=== PATIENT | male | born 1990 | race Caucasian/White ===

== ENCOUNTER 2025-03-12 08:46 | Emergency (ER) | payer MEDICAID, SELFPAY ==
--- NOTE | 2025-03-12 08:58 | XR_ITS ---
Examination: AP chest single view Technique one AP portable upright chest single view Date and time: March 12, 2025, 0903 hours Comparison October 25, 2023 INDICATIONS: Chest pain today FINDINGS: Normal heart size The lungs are clear. The osseous structures are intact IMPRESSION: No active disease
--- NOTE | 2025-03-12 09:00 | XR_ITS ---
Examination: CT abdomen with intravenous contrast CT pelvis with intravenous contrast 2-D coronal reconstructions 2-D sagittal reconstructions Date and time of exam:March 12, 2025 0909 hours INDICATIONS: Laceration to the anterior abdomen this morning. CTDI: vol (mGy) 5.02 DLP: (mGycm) 302 Technique: Multiple axial sections of the abdomen and pelvis have been obtained. 64 slice high-resolution scanner used. 3 mm axial sections have been obtained, post intravenous injection 60 cc [id number] 2-D sagittal, coronal reconstructions obtained. Low dose protocols were performed. One or more of the following dose reduction techniques were used; automated exposure control, adjustment of the mA and/or KV according to patient size, use of iterative reconstruction technique. Findings: Small soft tissue defect left anterior abdomen axial image 122, below the umbilicus with soft tissue contusion and 14 x 6 mm hematoma Minimal irregularity the anterior rectus muscle on the left. No free air in the abdomen. Intact gallbladder. Liver is intact. Spleen intact No free blood in the abdomen Aorta normal size Urinary bladder intact IMPRESSION: Left anterior lower abdominal wall laceration injury as above
[2025-03-12 09:03] VITALS: BP 110/88; PULSE 111; RESP 18; TEMP 36.8; O2SAT 95
[2025-03-12 09:04] VITALS: BMI 22.8
--- NOTE | 2025-03-12 09:16 | PC.NURSE ---
PT DENIES ANY PAIN AT THIS TIME RELATED TO INJURY, SAID WE CAN HOLD OFF ON PAIN MED AT THIS TIME. PT TO CT AT THIS TIME.
[2025-03-12] MEDS: ONDANSETRON INJ 2 MG/ML INJ 2 ML 4 MG IVP (09:32)
[2025-03-12] MEDS: fentaNYL CIT INJ 50 mCg/ML AMP 2ML IVP (09:32)
[2025-03-12] MEDS: SODIUM CHLORIDE 0.9% 1000 ML 1,000 ML 999 ML IV (09:33)
--- NOTE | 2025-03-12 09:49 | PC.NURSE ---
WHEN PT CAME BACK FROM CT HE WAS BLEEDING THROUGH THE BANDAGES, BANDAGES CHANGED, PT REQUEST PAIN MEDICATION. WAS OK W/ADMINISTRATION.
--- NOTE | 2025-03-12 09:56 | EDNOTE_ITS ---
ED General RME/HPI General Chief complaint: Wound/Laceration Stated complaint: Laceration to abdomen Time Seen by Provider: 03/12/25 09:00 Arrival date/time: 03/12/25 08:46 Related Data Previous Rx's ?Medication ?Instructions ?Recorded albuterol sulfate 90 mcg/actuation 2 inh inhalation Q6 H PRN shortness 10/25/23 breath activated powder inhaler of breath or wheezing #1 ea Allergies Allergy/AdvReac Type Severity Reaction Status Date / Time No Known Allergies Allergy Verified 03/12/25 08:49 Review of Systems Review of Systems Systems Reviewed: All systems reviewed, normal except as documented Course Quality Measures none Orders Category Date Time Status CT Screening NOW Care 03/12/25 09:[address] Screening X1 Care 03/12/25 08:58 Completed Ply Splicer NOW Care 03/12/25 08:58 Completed Free Water Routine Care 03/12/25 13:19 Ordered Insert IV NOW Care 03/12/25 08:58 Completed Miscellaneous Nursing Order NOW Care 03/12/25 10:19 Completed Miscellaneous Nursing Order NOW Care 03/12/25 13:19 Completed NPO NOW Care 03/12/25 08:[address] abdomen pelvis w con Stat Exams 03/12/25 09:00 Completed XR chest 1V portable Stat Exams 03/12/25 08:58 Completed XR forearm LT 2V Stat Exams 03/12/25 10:18 Completed Alcohol, Blood Medical Stat Lab 03/12/25 09:32 Completed CBC Stat Lab 03/12/25 10:20 Completed Comprehensive Metabolic Panel Stat Lab 03/12/25 09:32 Completed Drug Screen,Urine Stat Lab 03/12/25 12:49 Completed Lactate (Lactic Acid) Stat Lab 03/12/25 09:32 Completed Lactic Acid, 3 HR Stat Lab 03/12/25 13:06 Completed Lipase Stat Lab 03/12/25 09:32 Completed Prothrombin Time with INR Stat Lab 03/12/25 09:32 Completed Urinalysis Stat Lab 03/12/25 12:49 Completed Urinalysis, C/S if Indicated Stat Lab 03/12/25 12:49 Completed Bupivacaine Mpf 0.5% [Sensorcaine-Mpf Inj 0.5%] Med 03/12/25 10:18 Discontinued 10 ml INFL X1 ONE Bupivacaine Mpf 0.5% [Sensorcaine-Mpf Inj 0.5%] Med 03/12/25 11:27 D iscontinued 10 ml INFL X1 ONE Ondansetron Inj [Zofran Inj] Med 03/12/25 08:58 Discontinued 4 mg IVP X1 ONE Sodium Chloride 0.9% 1000 ml [Ns] 1,000 ml Med 03/12/25 08:58 Discontinued IV 999 mls/hr ceFAZolin/D5W 1 GM IVPB [Ancef Ivpb] Med 03/12/25 10:18 Discontinued 1 gm in 50 ml IV X1 fentaNYL INJ [Sublimaze Inj] Med 03/12/25 08:58 Discontinued 50 mcg IVP X1 ONE Vital Signs Vital signs: Vital Signs Temperature 98.3 F 03/12/25 09:03 Pulse Rate 111 H 03/12/25 09:03 Respiratory Rate 18 03/12/25 09:03 Blood Pressure 110/88 H 03/12/25 09:03 Pulse Oximetry (%) 95 03/12/25 09:03 Oxygen Delivery Method Room Air 03/12/25 09:03 Discharge Plan Plan Patient Disposition: HOME (Self Care) Prescriptions/Referrals Prescriptions/Med Rec: No Action albuterol sulfate 90 mcg/actuation aerosol powdr breath activated 2 inh inhalation Q6H PRN (Reason: shortness of breath or wheezing) Qty: 1 0RF Referrals: Nicole Cole PA-C [Primary Care Provider] - In 1 week Problem List Clinical Impression: Laceration, Abrasion, Penetrating wound of abdomen Impression comment: Possible violation of the anterior fascial sheath of the rectus of the abdominal wall, complex laceration [id number] sutures applied to the subcutaneous tissue to control bleeding refer to procedure note for details. Patient/Caregiver Discharge Instructions Additional Instructions: Follow up with primary care physician within 1 week of discharge No lifting more than 5lbs or strenous exercise for at least 5 days. If some bleeding occurs can hold pressure with gauze, if bleeding is not controlled after holding pressure can come back to the ER. Should any symptoms recur or worsen patient is instructed to return to the ED. Print Language: Beninese Stand Alone Forms: Padmini Award Info., Patient Portal Info Letter Attestation Attestation I, Josiah Faith MD, have reviewed the history, exam, and assessment of the patient. I have evaluated the patient independently and agree with the plan of care documented by [ ]. All diagnostic studies were reviewed and discussed. I confirm the diagnosis as documented by the Resident. I was present during the Medical Decision Making for this patient. The patient's plan of care was created between myself and the Resident and consistent with our discussion of the patient's case. Note the addendum's I placed in the MDM and procedure note as the patient had a penetrating wound to the abdominal wall with glass shards. Should be noted there was no glass seen on the CT and no glass found on physical exam and the wound required [id number] stitches to control bleeding. Estimated blood loss was probably 100 cc in the emergency department. Also patient was able to ambulate at the time of discharge had no dizziness and vital signs were stable. [facility] Narrative [facility] hospital course: 34-year-old male no significant past medical history who presented here to the ER after trauma injury to the abdomen. Patient was moving a glass mirror were broken shards of glass fell on his arm and an abdomen. Patient attempted to superglue his arm and abdomen but when he noticed that his abdomen continued to bleed decided to come to the ER. 0858: Labs ordered, CT abdomen ordered, x-ray of the forearm ordered Pain medicine ordered, fluids ordered 0932: Reassessed patient continues to bleed in the abdomen, CT read shows laceration, Ancef ordered, pain medicine given (fentanyl) 1130: Wound was irrigated and 2x internal sutures were placed and skin was closed and pressure was held and bleeding has stopped 1254: XRay reviewed no foreign body noted at this time. 1336: Patient was able to ambulate with stable vitals signs, pain and bleeding is adequately controlled at this time. Patient is instructed to take tylenol as needed for pain. Patient is stable for discharge at this time. Procedures done or offered: The following note is by myself Dr. Faith, patient had a penetrating a bdominal wound from a glass shard. CT scan revealed no violation of the peritoneal cavity and questionable minute violation of the fascia of the anterior rectus. Procedure note after we ruled out any surgical intervention required by general surgery patient has an open wound approximately 2 cm with blood that count and persistently is draining out. Despite despite a pressure dressing it still was oozing and soaking the pad requiring us to do a formal exploration. Patient was verbally consented. The abdomen was prepped prepared with some Betadine. A local was done with 0.5% Marcaine and patient after couple minutes had very adequate anesthesia . When 1 would picking machine operator the fatty tissue surrounding this wound the bleeding would stop very easily. specially around the wound itself. And with the resident retracting we found blood coming from the fatty subcutaneous tissues where we attempted to visualize but were unsuccessful. A 4-0 Vicryl suture was used to apply a figure of 8 sut ure was placed on the medial aspect of the wound which did not control the bleeding but also allowed us to retract the fatty soft tissues better. With some irrigation and further [id number]-hc-[id number] suturing on the lateral aspect of the wound blindly tied that off and the bleeding seem to be markedly improved with minimal oozing. During the procedure the wound was irrigated with about 500 cc of normal saline and the wound was lifted up and with firm pressure I was able to express the clot that had accumulated in the depths of the wound which by the way probed to about an inch depth. Patient tolerated this well after local anesthesia. After the wound was irrigated there was minimal bleeding the skin was closed with 4-0 nylon interrupted fashion for approximately 2 cm. Note this is a complex wound required extra management approximately 45 minutes. Pressure was applied initially by the patient's friend but later direct pressure was applied by lifting and squeezing the wound for a good 30 minutes. After that there was no further bleeding. Hour later patient was up walking felt great he was advised at great length to follow-up with his doctor return if any problem. He is also advised not to take any aspirin or do any heavy lifting or stretching or any activities that might disrupt the sutures. Should also be noted patient stated tetanus shot 2 years ago. And got some Ancef while he was here. He knows return if he has any evidence of infection. Clinical Information Provided by patient Medical Records Reviewed [facility] Chronic Illness/Social Conditions which may negatively complicate care or outcome(s)-explain: None or not applicable EKG EKG not done Lab Interpretation Labs: interpreted by me Lab(s) interpretation(s): CBC within normal limits, CMP unremarkable, Lactic acid noted to be slightly elevated, repeat normalized, UA negative for UTI, Utox positive for meth, THC and fentanyl. Medication Administration(s) Medication Administration History Discontinued Medications Bupivacaine HCl (Bupivacaine Mpf 0.5% 10 Ml Vial) 10 ml INFL X1 ONE Stop: 03/12/25 10:19 Last Admin: 03/12/25 10:58 Dose: 10 ml Documented By: TM Comments: GIVEN TO MD TO ADMINISTER Bupivacaine HCl (Bupivacaine Mpf 0.5% 10 Ml Vial) 10 ml INFL X1 ONE Stop: 03/12/25 11:28 Last Admin: 03/12/25 12:25 Dose: 10 ml Documented By: TM Comments: GIVEN TO PROVIDER TO ADMINISTER Fentanyl Citrate (Fentanyl Cit Inj 50 Mcg/Ml Amp 2ml) 50 mcg IVP X1 ONE Stop: 03/12/25 08:59 Last Admin: 03/12/25 09:32 Dose: 50 mcg Documented By: TM Sodium Chloride (Ns) 1,000 mls @ 999 mls/hr IV .Q1H1M ONE Stop: 03/12/25 09:58 Last Infusion: 03/12/25 10:34 Dose: Infused Documented By: Admin: 03/12/25 09:33 Dose: 999 mls/hr Documented By: TM Cefazolin Sodium/Dextrose (Ancef Ivpb) 1 gm in 50 mls @ 100 mls/hr IV X1 ONE Stop: 03/12/25 10:47 Last Infusion: 03/12/25 11:28 Dose: Infused Documented By: Admin: 03/12/25 10:58 Dose: 100 mls/hr Documented By: TM Ondansetron HCl (Ondansetron Inj 2 Mg/Ml Inj 2 Ml) 4 mg IVP X1 ONE Stop: 03/12/25 08:59 Last Admin: 03/12/25 09:32 Dose: 4 mg Documented By: SANTANA
[2025-03-12 09:58] LABS: Lactate (Lactic Acid) 2.6 mMol/L (0.4-2.0)
[2025-03-12 10:15] LABS: INR 1.0 (0.9-1.3); Prothrombin Time 11.2 Seconds (9.0-12.2)
[2025-03-12 10:18] LABS: Alanine Aminotransferase 21 U/L (10-49); Albumin, Serum 4.9 gm/dL (3.5-5.0); Albumin/Globulin Ratio 2.2 (1.2-2.2); Alcohol, Blood Medical < 10.0 mg/dL (0-10.0); Alkaline Phosphatase 68 U/L (46-116); Anion Gap 10 (7-16); Aspartate Amino Transferase 27 U/L (0-34); BUN/Creatinine Ratio 11 Ratio (12-20); Bilirubin,Total 0.6 mg/dL (0.3-1.2); Blood Urea Nitrogen 14 mg/dL (9-23); Calcium 9.6 mg/dL (8.3-10.6); Calcium (Corrected) 9.6 mg/dL (8.5-10.1); Carbon Dioxide 29.0 mMol/L (20.0-31.0); Chloride 102 mMol/L (98-107); Creatinine (Component) 1.3 mg/dL (0.6-1.3); Estimated Creatinine Clearance 81.1 mL/min (>60); Globulin 2.2 gm/dL (2.3-3.5); Glucose 131 mg/dL (74-106); Lipase 29 U/L (12-53); Osmolality,Calculated 283 (275-295); Potassium 3.8 mMol/L (3.4-5.1); Sodium 141 mMol/L (136-145); Total Protein 7.1 gm/dL (5.7-8.2); eGFR > 60 See Note
--- NOTE | 2025-03-12 10:18 | XR_ITS ---
Examination: Forearm, left, 2 views. Technique: Forearm, AP, lateral 2 views Date and time of exam: March 12, 2025 1027 hours INDICATIONS: Laceration to the forearm today, pain FINDINGS: No fracture or dislocation. No opaque foreign body IMPRESSION: No opaque foreign body
[2025-03-12 10:21] VITALS: BP 120/78; PULSE 89; RESP 18; TEMP 36.8; O2SAT 98
[2025-03-12 10:33] LABS: Basophils # (Auto) 0.1 Thou/mm3 (0.0-0.2); Basophils % (Auto) 1 % (0-2.5); Eosinophils # (Auto) 0.3 Thou/mm3 (0.0-0.5); Eosinophils % (Auto) 3 % (0-10); Hematocrit 36.6 % (41.0-53.0); Hemoglobin 13.0 g/dL (13.5-16.0); Immature Granulocytes Auto 0.01 Thou/mm3 (0.00-0.00); Lymphocytes # (Auto) 3.2 Thou/mm3 (1.0-4.8); Lymphocytes % (Auto) 34 % (10-50); Mean Corpuscular HGB Conc 35.5 g/dl (31.0-37.0); Mean Corpuscular Hemoglobin 30.0 pg (25.0-35.0); Mean Corpuscular Volume 85 fL (80-100); Monocytes # (Auto) 0.7 Thou/mm3 (0.0-0.8); Monocytes % (Auto) 8 % (0-12); Neutrophils # (Auto) 5.1 Thou/mm3 (1.8-7.7); Neutrophils % (Auto) 55 % (37-80); Nucleated Red Blood Cell # 0.00 Thou/mm3 (0.00-0.00); Nucleated Red Blood Cell % 0 /100 WBC (0); Platelet Count 251 Thou/mm3 (140-440); RDW Standard Deviation 39.8 fL (35.1-43.9); Red Blood Count 4.33 Miln/mm3 (4.50-5.90); White Blood Count 9.4 Thou/mm3 (3.8-10.6)
[2025-03-12] MEDS: ceFAZolin/D5W 1 GM IVPB 1 GM/50 ML BAG IV (10:58)
[2025-03-12] MEDS: BUPIVACAINE MPF 0.5% 10 ML VIAL INFL ×2 (10:58→12:25)
[2025-03-12 12:55] LABS: Reflex Lactate? Y
[2025-03-12 12:57] LABS: Collection Type, Urine Clean Catch; Squamous Epithelial Cell,Urine 0 /hpf (0-5)
[2025-03-12 13:09] LABS: Lactic Acid, 3 HR 0.8 mMol/L (0.4-2.0)
[2025-03-12 13:14] LABS: Bilirubin,Urine Negative (Negative); Blood,Urine Negative (Negative); Clarity,Urine Clear (Clear/Hazy); Color,Urine Yellow (Lt Yel-Yel); Culture Indicated,Urine Not Indicated; Glucose, Urine Negative (Negative); Hyaline Casts,Urine < 1 /hpf (0-1); Ketones,Urine Negative (Negative); Leukocyte Esterase,Urine Negative (Negative); Nitrite,Urine Negative (Negative); PH,Urine 6.0 (5.0-7.0); Protein,Urine 1+ (Neg - Trace); RBC,Urine < 1 /hpf (0-3); Urobilinogen,Urine Negative mg/dL (0.0-1.0); WBC,Urine 3 /hpf (0-5)
[2025-03-12 13:17] LABS: Specific Gravity,Urine > 1.030 (1.001-1.035)
[2025-03-12 13:35] LABS: Amphetamine/Methamp Scrn,U Positive (Negative); Barbiturate Screen,Urine Negative (Negative); Benzodiazepines Screen,Urine Negative (Negative); Benzoylecgonine Screen, Ur Negative (Negative); Fentanyl Screen,Urine Positive (Negative); Opiate Screen,Urine Negative (Negative); THC Screen,Urine Positive (Negative)
== END 2025-03-12 14:01 | disposition home or self-care (01) ==
PROVIDERS: Emergency Medicine; Emergency Provider Student in an Organized Health Care Education/Training Program; PCP Physician Assistant
DX: S31.119A Laceration without foreign body of abdominal wall, unspecified quadrant without penetration into peritoneal cavity, initial encounter (principal); W25.XXXA Contact with sharp glass, initial encounter; S51.812A Laceration without foreign body of left forearm, initial encounter
CPT/HCPCS: 13100; 36415; 71045; 73090; 74177; 80053; 80307; 80320; 81001; 83605; 83690; 85025; 85610; 96361; 96365; 96372; 96375; 99284; A4649; J0689; J2405; J3010; J3490; J7030; Q9967; G0480

== ENCOUNTER 2025-07-10 00:24 | Emergency (ER) | payer MEDICAID, SELFPAY ==
[2025-07-10 00:25] VITALS: BP 118/72; PULSE 70; RESP 18; TEMP 36.9; O2SAT 95
[2025-07-10 00:26] VITALS: BMI 23.5
[2025-07-10 00:33] VITALS: PULSE 94; RESP 19; O2SAT 99
--- NOTE | 2025-07-10 00:33 | PD.EDSOB ---
ED SOB =RME/HPI General Chief Complaint: Shortness of Breath/Dyspnea Stated Complaint: SOB Time Seen by Provider: 07/10/25 00:35 Arrival date/time: 07/10/25 00:24 RME / HPI RME / HPI Narrative: Dr. Garcia?s Main ED Evaluation: 35yo male with a history of asthma BIBA from home presents to the ED for a chief complaint of shortness of breath x tonight. Patient states he started having shortness of breath after having dinner. Patient ran out of his rescue inhaler yesterday. Denies any other associated symptoms. NKA. Related Data Previous Rx's ?Medication ?Instructions ?Recorded albuterol sulfate 90 mcg/actuation 2 inh inhalation Q6H PRN shortness 10/25/23 breath activated powder inhaler of breath or wheezing #1 ea albuterol sulfate 90 mcg/actuation 2 inh inhalation Q4H PRN shortness 07/10/25 breath activated powder inhaler of breath #1 ea prednisone 50 mg tablet 50 mg PO QDAY #5 tabs 07/10/25 Allergies Allergy/AdvReac Type Severity Reaction Status Date / Time No Known Allergies Allergy Verified 03/12/25 08:49 Review of Systems Review of Systems Systems Reviewed: All systems reviewed, normal except as documented ED Exam Narrative Physical exam: Generally patient is alert talking in full sentences and in no obvious distress, heart regular rate and rhythm, lungs show end expiratory wheezes bilaterally with good air exchange, chest shows no retractions, abdomen is soft nontender without accessory muscle respiratory use, skin is warm pale and dry without rash, neurologic exam shows [place] Coma Scale of 15 Course Quality Measures none Orders Category Date Time Status ALBUTEROL RT 0.5ml [Proventil Rt 0.5ml] Med 07/10/25 00:35 Once 2.5 mg INH X1 ONE Ipratropium Donaldson Rt Maureen [Atrovent Rt Maureen] Med 07/10/25 00:35 Once 0.5 mg INH X1 ONE MethylPREDNISolone. [SoluMEDROL Inj] Med 07/10/25 00:35 Once 125 mg IV X1 ONE Sodium Chloride Rt Maureen 0.9% [NS Rt Maureen 0.9%] Med 07/10/25 00:35 Ordered 3 ml INH PRN PRN Vital Signs Vital signs: Vital Signs Temperature 98.4 F 07/10/25 00:25 Pulse Rate 70 07/10/25 00:25 Respiratory Rate 18 07/10/25 00:25 Blood Pressure 118/72 07/10/25 00:25 Pulse Oximetry (%) 95 07/10/25 00:25 Oxygen Delivery Method Room Air 07/10/25 00:25 Shortness of Breath / Dyspnea MDM Narrative MDM Narrative:: Scribe Attestation: 07/10/25 - Sonya Dc am scribing for and in the presence of Dr. Garcia. Patient received Med-Neb treatments from the paramedics with benefit. Patient does smoke cigarettes. He ran out of his inhaler. Here in the emergency room the patient was given albuterol 2.5 mg and Atrovent 0.5 mg and neb treatment x 1 with benefit as well as Solu-Medrol 125 mg IV. He will be discharged on albuterol and prednisone to be taken as prescribed. Follow-up with his doctor. Stop smoking. Return to ER as needed or if condition worsens. Patient data External records reviewed:: [facility] previous records (Per chart review, patient was seen here on 10/25/23 for bronchitis.) and EMS form Clinical information provided by:: patient and EMS Social determinants that could affect healthcare access:: none Patient has the following chronic illnesses:: asthma How is presenting disease/condition affected by chronic disease/condition?: exacerbated by Evaluation data The following diagnostics were reviewed and interpreted by me:: other (specify) (none) Lab and/or radiology exams considered but not ordered:: none Interpretation Summary: none Medications / Prescriptions Medications or Prescriptions considered but not ordered:: none Medication administrations:: Medication Administration History Albuterol (Albuterol Rt 2.5 Mg/0.5 Ml Nebu) 2.5 mg INH X1 ONE Stop: 07/10/25 00:36 Ipratropium Donaldson (Ipratropium Rt 0.5 Mg/ 2.5 Ml Nebu) 0.5 mg INH X1 ONE Stop: 07/10/25 00:36 Methylprednisolone Sodium Succinate (Methylprednisolone Sod 500 Mg/8 Ml Vial) 125 mg IV X1 ONE Stop: 07/10/25 00:36 Sodium Chloride (Sodium Chloride Rt Maureen 0.9% 3 Ml Nebu) 3 ml INH PRN PRN PRN Reason: SOLN Stop: 08/09/25 00:34 see above Consultations Consultation(s) initiated? (list below): No Diagnosis Shortness of Breath Differential Diagnosis: other (See MDM) Most likely diagnosis given after review of the tests above:: see clinical impression below Admission Indicated Admission indicated?: not indicated Admission Request Was there a request for admission?: No Disposition Plan Disposition Plan: Discharge Discharge Attestation Discharge Attestation: The patient and all family members were given an opportunity to ask questions and understood the discharge instructions. Discharge instructions specifically effects, indications for sooner follow up or return to the emergency department, and the expected course of current diagnosis. Patient condition: Stable Discharge Plan Plan Patient Disposition: HOME (Self Care) Prescriptions/Referrals Prescriptions/Med Rec: New albuterol sulfate 90 mcg/actuation aerosol powdr breath activated 2 inh inhalation Q4H PRN (Reason: shortness of breath) Qty: 1 0RF prednisone 50 mg tablet 50 mg PO QDAY Qty: 5 0RF No Action albuterol sulfate 90 mcg/actuation aerosol powdr breath activated 2 inh inhalation Q6H PRN (Reason: shortness of breath or wheezing) Qty: 1 0RF Problem List Clinical Impression: Asthma with exacerbation Patient/Caregiver Discharge Instructions Education Materials: ED Asthma, Acute (Adult) Additional Instructions: Stop smoking. Medications as prescribed. Follow-up with your doctor. Return as needed. Print Language: Amharic Stand Alone Forms: Padmini Award Info., Patient Portal Info Letter
[2025-07-10 00:54] VITALS: PULSE 77
[2025-07-10] MEDS: SODIUM CHLORIDE RT SOL 0.9% 3 ML NEBU INH (00:54)
[2025-07-10] MEDS: ALBUTEROL RT 2.5 MG/0.5 ML NEBU INH (00:54)
[2025-07-10] MEDS: IPRATROPIUM RT 0.5 MG/ 2.5 ML NEBU INH (00:54)
[2025-07-10 00:55] VITALS: PULSE 81; RESP 16; O2SAT 100
[2025-07-10] MEDS: MethylPREDNISolone SOD SUCC 62.5 MG/ML 2ML VIAL 125 MG IVP (01:12)
[2025-07-10 01:18] VITALS: PULSE 80; RESP 18; TEMP 36.7; O2SAT 94
== END 2025-07-10 01:18 | disposition home or self-care (01) ==
LOC: SERX 01:22
PROVIDERS: Emergency Provider Emergency Medicine
DX: J45.901 Unspecified asthma with (acute) exacerbation (principal)
CPT/HCPCS: 94640; 96374; 99283; J2919; J7644; J7611